=== PATIENT | female | born 1955 | race Caucasian/White ===

== ENCOUNTER → 2016-12-03 | Outpatient (CLI) | payer OTHER ==
--- NOTE | 2016-12-03 09:25 | MA ---
Bilateral Digital Screening Mammography Clinical History: 61-year-old female with no family history of breast cancer, who presents for routin e annual mammographic screening. Technique: Digital CC and MLO views of each breast are compared with previous studies dated November [id number], November 22, 2014, December 11, 2013, January 29, 2013, and January 10, 2012. A cutaneous marker has been placed over a mole on the skin surface of the left breast. This examination was processed b y the [employer] computer-aided detection system. Breast Density: Type B. Scattered fibroglandular densities. CAD Evaluation: Reviewed. Findings: There is a mild residual fibroglandular pattern, which is similar in distribution. There ar e a couple of small stable nodules in the anterolateral right breast. There is no focal neodensity, o r interim architectural change. Benign-appearing axillary lymph nodes are seen. There are no new susp icious clustered microcalcifications. Impression: Benign mammography. BI-RADS Category: 2. Recommendation: Routine annual mammographic screening. [facility] will send a result letter to the patient. Negative mammography should not preclude additional work-up of a clinically suspicious finding. The patient's information is entered into a reminder system with a target due date for her next mammo gram.
== END ==
LOC: BRMIMAGING 08:19
DX: Z12.31 Encounter for screening mammogram for malignant neoplasm of breast (principal)
CPT/HCPCS: G0202

== ENCOUNTER → 2017-12-05 | Outpatient (CLI) | payer OTHER | LOC: BRMIMAGING 08:18 | PROVIDERS: ATTEND Obstetrics & Gynecology | DX: Z12.31 Encounter for screening mammogram for malignant neoplasm of breast (principal) ==

== ENCOUNTER → 2018-12-28 | Outpatient (CLI) | payer OTHER | LOC: BRMIMAGING 12:52 | PROVIDERS: ATTEND Obstetrics & Gynecology | DX: Z12.31 Encounter for screening mammogram for malignant neoplasm of breast (principal) ==